=== PATIENT | male | born 1935 | race Caucasian/White ===

== ENCOUNTER 2019-05-06 09:59 | Inpatient (IN) | payer BC, OTHER, MEDICARE ==
[~2019-05-06] VITALS: Ht 185.4 cm; Wt 125.2 kg
[2019-05-06] MEDS ORDERED: HYDR12.54 MT (10:41)
[2019-05-06] MEDS ORDERED: OMEP20TA15 MT (10:41)
[2019-05-06] MEDS ORDERED: VALS320T2 MT (10:41)
[2019-05-06] MEDS ORDERED: GLYB1TAB MT (10:41)
[2019-05-06] MEDS ORDERED: ATEN100T MT (10:41)
[2019-05-06] MEDS ORDERED: ATOR20TA MT (10:41)
[2019-05-06] MEDS ORDERED: LEVO200T8 MT (10:41)
[2019-05-06 11:13] LABS: BASOPHILS % 0.7 % (0.0-2.0); EOSINOPHILS % 3.4 % (0.0-5.0); HEMATOCRIT. 42.3 % (42.0-52.0); HEMOGLOBIN. 14.5 g/dL (14.0-18.0); LYMPHOCYTES % 18.7 % (20.0-50.0); MEAN CORPUSCULAR HEMOGLOBIN 33.6 pg (28.0-32.0); MEAN CORPUSCULAR VOLUME 97.7 fL (80.0-94.0); MEAN PLATELET VOLUME 9.5 fl (7.4-10.4); MONOCYTES % 5.3 % (2.0-8.0); NEUTROPHILS % 71.9 % (40.0-76.0); PLATELET 165 x1000/uL (130-400); RED BLOOD CELL COUNT 4.33 mill/uL (4.7-6.1)
[2019-05-06 11:16] LABS: CHLORIDE 103 mEq/L (98-107)
[2019-05-06 11:17] LABS: INR 1.1; PARTIAL THROMBOPLASTIN TIME 29.2 sec (23.4-31.0); PROTHROMBIN TIME 11.3 sec (9.6-11.0)
[2019-05-06 11:24] LABS: CREATINE KINASE 365 IU/L (39-308)
[2019-05-06 11:27] LABS: CREATINE KINASE MB FRACTION 10.3 ng/mL (0.5-3.6)
[2019-05-06 12:07] LABS: CLARITY URINE CLOUDY (CLEAR); COLOR URINE DARK YELLOW (YELLOW); KETONES URINE NEGATIVE (NEGATIVE); LEUKOCYTE ESTERASE URINE 2+ (NEGATIVE); NITRITE URINE POSITIVE (NEGATIVE); OCCULT BLOOD URINE TRACE (NEGATIVE); PROTEIN URINE 3+ (NEGATIVE); SPECIFIC GRAVITY URINE 1.022 (1.005-1.030); UROBILINOGEN URINE 0.2 E.U./dL (0.2-1.0)
[2019-05-06 12:29] LABS: T4 FREE 0.63 ng/dL (0.76-1.46)
[2019-05-06] MEDS ORDERED: NITROFURANTOIN 100MG M/M CAPSULE PO ONE (12:45)
[2019-05-06] MEDS ORDERED: ONDANSETRON HCL 4MG/2ML INJ IV PRN (14:15)
[2019-05-06] MEDS ORDERED: ACETAMINOPHEN 325MG TABLET PO PRN (14:15)
[2019-05-06] MEDS ORDERED: DOCUSATE SODIUM 100MG CAPSULE PO PRN (14:15)
[2019-05-06] MEDS ORDERED: LEVOFLOXACIN 500MG PREMIX 100 ML IV SCH (14:15)
[2019-05-06 16:00] VITALS: BP_SYST 129; BP_SYST 141; BP_DIAS 64; BP_DIAS 95
[2019-05-06] MEDS ORDERED: GLYBURIDE 1.25 MG PO SCH (18:10)
[2019-05-06] MEDS: METFORMIN HCL 500MG TABLET PO SCH (18:44)
[2019-05-06] MEDS: FUROSEMIDE 20MG/2ML VIAL IVP SCH (18:44)
[2019-05-06] MEDS: ATENOLOL 50 MG TABLET PO SCH (18:45)
[2019-05-06] MEDS: LOSARTAN POTASSIUM 100 MG TABLET PO SCH (18:45)
[2019-05-06] MEDS: LEVOTHYROXINE SODIUM 200MCG TABLET PO SCH (18:46)
[2019-05-06] MEDS: CEFTRIAXONE 1 G PREMIX 50 ML IV SCH (18:46)
[2019-05-06] MEDS: DEXT 5%/0.45% NACL 1000ML 1,000 ML IV SCH (18:50)
[2019-05-06 20:00] VITALS: BP 137/71
[2019-05-06] MEDS ORDERED: DEXTROSE 50% WATER 50ML SYRINGE IV PRN (22:00)
[2019-05-06] MEDS: INSULIN LISPRO 100 UNITS/ML SUBCUT SCH (23:01)
[2019-05-06] MEDS: ATORVASTATIN CALCIUM 20MG TABLET PO SCH (23:02)
[2019-05-06] MEDS: MONTELUKAST SODIUM 10MG TABLET PO SCH (23:02)
[2019-05-06] MEDS: GLYBURIDE 2.5MG TABLET PO SCH (23:02)
[2019-05-06] MEDS: BLOOD SUGAR DIAGNOSTIC STRIP TEST SCH (23:03)
[2019-05-07] VITALS: BP 115/77
[2019-05-07 00:17] LABS: CREATINE KINASE MB FRACTION 8.2 ng/mL (0.5-3.6)
[2019-05-07 04:00] VITALS: BP 105/61
[2019-05-07] MEDS: BLOOD SUGAR DIAGNOSTIC STRIP TEST SCH ×4 (05:51→22:18)
[2019-05-07 08:00] VITALS: BP 110/78
[2019-05-07 08:00] LABS: CREATINE KINASE MB FRACTION 6.6 ng/mL (0.5-3.6)
[2019-05-07] MEDS: INSULIN LISPRO 100 UNITS/ML SUBCUT SCH ×4 (08:10→22:19)
[2019-05-07] MEDS: ATENOLOL 50 MG TABLET PO SCH (10:15)
[2019-05-07] MEDS: FUROSEMIDE 20MG/2ML VIAL IVP SCH (10:15)
[2019-05-07] MEDS: GLYBURIDE 2.5MG TABLET PO SCH ×2 (10:15→18:32)
[2019-05-07] MEDS: LOSARTAN POTASSIUM 100 MG TABLET PO SCH (10:16)
[2019-05-07] MEDS: METFORMIN HCL 500MG TABLET PO SCH ×2 (10:16→18:31)
[2019-05-07] MEDS: LEVOTHYROXINE SODIUM 200MCG TABLET PO SCH ×2 (10:16→21:57)
[2019-05-07] MEDS ORDERED: ENOXAPARIN 40MG/0.4ML SYR SUBCUT SCH (11:00)
[2019-05-07 12:00] VITALS: BP 129/86
[2019-05-07 12:57] LABS: EOSINOPHILS % 4.4 % (0.0-5.0); HEMATOCRIT. 42.7 % (42.0-52.0); HEMOGLOBIN. 14.4 g/dL (14.0-18.0); MEAN CORPUSCULAR HEMOGLOBIN 33.1 pg (28.0-32.0); MEAN CORPUSCULAR VOLUME 97.9 fL (80.0-94.0); MEAN PLATELET VOLUME 9.8 fl (7.4-10.4); MONOCYTES % 6.4 % (2.0-8.0); NEUTROPHILS % 66.2 % (40.0-76.0); PLATELET 158 x1000/uL (130-400); RED BLOOD CELL COUNT 4.36 mill/uL (4.7-6.1); RED CELL DISTRIBUTION WIDTH 15.5 % (11.6-14.6)
[2019-05-07] MEDS ORDERED: POTASSIUM CHLORIDE 20MEQ TABLET SR PO SCH (14:45)
[2019-05-07] MEDS: DEXT 5%/0.45% NACL 1000ML 1,000 ML IV SCH (15:27)
[2019-05-07 16:00] VITALS: BP 141/77
[2019-05-07] MEDS: CEFTRIAXONE 1 G PREMIX 50 ML IV SCH (18:31)
[2019-05-07 20:00] VITALS: BP 138/87
[2019-05-07] MEDS: ATORVASTATIN CALCIUM 20MG TABLET PO SCH (21:56)
[2019-05-07] MEDS: MONTELUKAST SODIUM 10MG TABLET PO SCH (21:56)
[2019-05-07] MEDS: ENOXAPARIN 120MG/0.8ML SYR SUBCUT SCH (21:57)
[2019-05-08] VITALS: BP 127/76
[2019-05-08 04:00] VITALS: BP 136/86
[2019-05-08 06:45] LABS: BASOPHILS % 0.8 % (0.0-2.0); EOSINOPHILS % 4.3 % (0.0-5.0); HEMATOCRIT. 42.1 % (42.0-52.0); HEMOGLOBIN. 14.4 g/dL (14.0-18.0); LYMPHOCYTES % 25.6 % (20.0-50.0); MEAN CORPUSCULAR HEMOGLOBIN 33.6 pg (28.0-32.0); MEAN CORPUSCULAR VOLUME 97.9 fL (80.0-94.0); MEAN PLATELET VOLUME 9.7 fl (7.4-10.4); MONOCYTES % 7.1 % (2.0-8.0); NEUTROPHILS % 62.2 % (40.0-76.0); PLATELET 157 x1000/uL (130-400); RED CELL DISTRIBUTION WIDTH 15.7 % (11.6-14.6)
[2019-05-08] MEDS: BLOOD SUGAR DIAGNOSTIC STRIP TEST SCH ×4 (07:40→21:12)
[2019-05-08 08:00] VITALS: BP 134/87
[2019-05-08] MEDS: METFORMIN HCL 500MG TABLET PO SCH ×2 (09:20→18:43)
[2019-05-08] MEDS: INSULIN LISPRO 100 UNITS/ML SUBCUT SCH ×4 (09:22→21:13)
[2019-05-08] MEDS: LOSARTAN POTASSIUM 100 MG TABLET PO SCH (09:23)
[2019-05-08] MEDS: GLYBURIDE 2.5MG TABLET PO SCH ×2 (09:23→18:44)
[2019-05-08] MEDS: ATENOLOL 50 MG TABLET PO SCH (09:24)
[2019-05-08] MEDS: FUROSEMIDE 20MG/2ML VIAL IVP SCH (09:26)
[2019-05-08] MEDS: ENOXAPARIN 120MG/0.8ML SYR SUBCUT SCH (09:37)
[2019-05-08] MEDS ORDERED: POTASSIUM CHLORIDE INJ 40 MEQ in DEXT 5% WATER 500 ML IV NR (10:30)
[2019-05-08 12:00] VITALS: BP 134/98
[2019-05-08 16:00] VITALS: BP 141/90
[2019-05-08] MEDS: APIXABAN 5 MG TABLET PO SCH (18:43)
[2019-05-08 20:00] VITALS: BP 122/81
[2019-05-08] MEDS: SULFAMETHOXAZOLE/TRIMETHOPRIM 800/160MG TABLET PO SCH (21:11)
[2019-05-08] MEDS: MONTELUKAST SODIUM 10MG TABLET PO SCH (21:11)
[2019-05-08] MEDS: ATORVASTATIN CALCIUM 20MG TABLET PO SCH (21:11)
[2019-05-08] MEDS: DEXT 5%/0.45% NACL 1000ML 1,000 ML IV SCH (23:27)
[2019-05-09] VITALS: BP 132/74
[2019-05-09 04:00] VITALS: BP 137/94
[2019-05-09] MEDS: BLOOD SUGAR DIAGNOSTIC STRIP TEST SCH ×2 (06:00→12:18)
[2019-05-09 07:24] LABS: BASOPHILS % 1.2 % (0.0-2.0); EOSINOPHILS % 4.4 % (0.0-5.0); HEMATOCRIT. 40.8 % (42.0-52.0); LYMPHOCYTES % 19.5 % (20.0-50.0); MEAN CORPUSCULAR HEMOGLOBIN 33.6 pg (28.0-32.0); MEAN CORPUSCULAR VOLUME 97.9 fL (80.0-94.0); MEAN PLATELET VOLUME 9.8 fl (7.4-10.4); MONOCYTES % 8.8 % (2.0-8.0); NEUTROPHILS % 66.1 % (40.0-76.0); PLATELET 143 x1000/uL (130-400); RED BLOOD CELL COUNT 4.17 mill/uL (4.7-6.1); RED CELL DISTRIBUTION WIDTH 15.6 % (11.6-14.6)
[2019-05-09 08:00] VITALS: BP 139/95
[2019-05-09] MEDS: INSULIN LISPRO 100 UNITS/ML SUBCUT SCH ×2 (08:10→13:13)
[2019-05-09] MEDS: SULFAMETHOXAZOLE/TRIMETHOPRIM 800/160MG TABLET PO SCH (08:28)
[2019-05-09] MEDS: METFORMIN HCL 500MG TABLET PO SCH (08:28)
[2019-05-09] MEDS: GLYBURIDE 2.5MG TABLET PO SCH (08:28)
[2019-05-09] MEDS: LOSARTAN POTASSIUM 100 MG TABLET PO SCH (08:29)
[2019-05-09] MEDS: ATENOLOL 50 MG TABLET PO SCH (08:29)
[2019-05-09] MEDS: FUROSEMIDE 20MG/2ML VIAL IVP SCH (08:29)
[2019-05-09] MEDS: LEVOTHYROXINE SODIUM 200MCG TABLET PO SCH (08:29)
[2019-05-09] MEDS: APIXABAN 5 MG TABLET PO SCH (08:36)
[2019-05-09 12:00] VITALS: BP 123/76
[2019-05-09 12:56] VITALS: BP 123/76
== END 2019-05-09 16:44 | disposition home or self-care (01) | DRG 871 ==
LOC: ER 11:09 → 7WST 12:39 → EDBEDREQ 12:43 → SUATTDRO 13:56 → ENRESERV 14:27 → UNDODISIN 05-09 14:10
PROVIDERS: ADMIT Internal Medicine Critical Care Medicine; ATTEND Internal Medicine Critical Care Medicine
DX: A41.51 Sepsis due to Escherichia coli [E. coli] (principal); I50.23 Acute on chronic systolic (congestive) heart failure; N17.0 Acute kidney failure with tubular necrosis; G93.41 Metabolic encephalopathy; N39.0 Urinary tract infection, site not specified; I11.0 Hypertensive heart disease with heart failure; E11.9 Type 2 diabetes mellitus without complications; E03.9 Hypothyroidism, unspecified; E66.9 Obesity, unspecified; E78.5 Hyperlipidemia, unspecified; I48.91 Unspecified atrial fibrillation; R62.7 Adult failure to thrive; Z96.653 Presence of artificial knee joint, bilateral; E86.0 Dehydration; B96.20 Unspecified Escherichia coli [E. coli] as the cause of diseases classified elsewhere; G90.8 Other disorders of autonomic nervous system; G89.29 Other chronic pain; M54.5 Low back pain; E87.6 Hypokalemia; M19.90 Unspecified osteoarthritis, unspecified site; E78.00 Pure hypercholesterolemia, unspecified; K21.9 Gastro-esophageal reflux disease without esophagitis; Z91.19 Patient's noncompliance with other medical treatment and regimen; Z83.3 Family history of diabetes mellitus; Z86.61 Personal history of infections of the central nervous system; Z91.14 Patient's other noncompliance with medication regimen; Z79.899 Other long term (current) drug therapy; Z82.49 Family history of ischemic heart disease and other diseases of the circulatory system; Z88.0 Allergy status to penicillin; Z88.1 Allergy status to other antibiotic agents; Z88.8 Allergy status to other drugs, medicaments and biological substances; Z87.891 Personal history of nicotine dependence; Z68.36 Body mass index [BMI] 36.0-36.9, adult
CPT/HCPCS: 36415; 71045; 80048; 80053; 80061; 81003; 82550; 82553; 82962; 83036; 83735; 83880; 84439; 84443; 84481; 84484; 85025; 87077; 87186; 92523; 93005; 93306; 93880; 93970; 97162; 97166; 99285; J0696; J1650; J1815; J1940; J3480; J7060